=== PATIENT | female | born 1995 | race American Indian/Alaskan Native ===

== ENCOUNTER 2018-10-07 17:54 | Emergency (ER) | payer BC, OTHER ==
[2018-10-07 18:06] VITALS: BP 123/75
--- NOTE | 2018-10-07 18:06 | Emergency Department Report ---
Chief Complaint: Fall Stated Complaint: FALL INJURY/DIZZY/PAIN Time Seen by Provider: 10/07/18 18:02 - HPI History of Present Illness: pt states she felt lightheaded last night states she fell down the steps (+) n/v states she hit the back of her head states she has lower back pain no numbness, no weakness no bowel/bladder incontinence states she has an implanon in no PMHx no daily meds non smoker non drinker no drug use MSE screening note: Focused history and physical exam performed. Due to findings the following was ordered: CT head, XR of the lumbar spine, labs, UA, urine preg, EKG ED Disposition for MSE Condition: Stable
[2018-10-07 18:42] LABS: Basophils % (Auto) 0.5 % (0.0-1.8); Eosinophils % (Auto) 0.4 % (0.0-4.3); Hematocrit 32.8 % (30.3-42.9); Hemoglobin 10.5 gm/dl (10.1-14.3); Lymphocytes # (Auto) 1.8 K/mm3 (1.2-5.4); Lymphocytes % (Auto) 25.7 % (13.4-35.0); Mean Corpuscular HGB Conc 32 % (30-34); Mean Corpuscular Volume 70 fl (79-97); Monocytes # (Auto) 0.3 K/mm3 (0.0-0.8); Monocytes % (Auto) 4.5 % (0.0-7.3); Platelet Count 207 K/mm3 (140-440); Red Blood Count 4.67 M/mm3 (3.65-5.03); Red Cell Distribution Width 18.5 % (13.2-15.2)
[2018-10-07 19:01] LABS: Alanine Aminotransferase 13 units/L (7-56); Albumin 3.7 g/dL (3.9-5); BUN/Creatinine Ratio 13; Blood Urea Nitrogen 10 mg/dL (7-17); Calcium 9.4 mg/dL (8.4-10.2); Hemolysis Index 9
--- NOTE | 2018-10-07 19:40 | Cat Scan Report ---
PROCEDURE: CT HEAD/BRAIN WO CON TECHNIQUE: Spiral CT imaging of the brain is obtained without IV contrast. HISTORY: fall, hit head pain. COMPARISONS: None FINDINGS: Brain: Brain density appears normal. No evidence of intracranial hemorrhage. No parenchymal hemorr sayda, mass lesions or mass effect are seen. No abnormal extra-axial fluid collects or masses are see n. Ventricles: Ventricles are normal size and are midline. Bone Windows: No evidence of skull fracture. Paranasal sinuses: Visualized portions are clear.. Mastoid air cells: Clear. IMPRESSION: Negative unenhanced CT scan of the brain. No evidence of intracranial hemorrhage or skull fracture. This document is electronically signed by Adal Kat MD., October 07 2018 07:38:50 PM ET
== END 2018-10-07 20:40 | disposition left against medical advice (07) ==
LOC: ED 17:54
DX: R42 Dizziness and giddiness (principal); R51 Headache; Z53.21 Procedure and treatment not carried out due to patient leaving prior to being seen by health care provider
CPT/HCPCS: 36415; 70450; 80053; 85025; 93005; 93010

== ENCOUNTER 2019-06-19 14:55 | Emergency (ER) | payer BC, OTHER ==
[2019-06-19] MEDS ORDERED: SODIUM CHLORIDE 0.9% 1000 ML 1,000 ML IV ONE (15:29)
[2019-06-19] MEDS ORDERED: ONDANSETRON 4 MG/2 ML INJ IV ONE (15:29)
--- NOTE | 2019-06-19 15:30 | Emergency Department Report ---
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 PT IS AND HAS HAD N/V. SHE GOT UP AT 0200 AND WHILE GOING UP STAIRS FELL FORWARD AND HIT HER GRAVID STOMACH. SHE COMES IN WITH SUPRAPUBIC PAIN "JUST WANTING TO MAKE SURE BABY IS OK." [id number] LMP 02/26 AFTER HAVING BC IMPLANT REMOVED CONFIRMED AT [facility] END OF FEB PT BELIEVES SHE IS 16W 6 D SHE HAS HAD NO CARE SINCE THAT VISIT SHE STATES SHE HAS BEEN TRYING TO GET AN APPNT. PT DENEIS VAG BLEED OR DC SHE IS AMBULATORY AND IN NAD ON EXAM PMH NONE PSH CSEC LLE SURGERY X 2 RX VIT DENIES CIG/ETOH OR DRUGS LIVES WITH 2 OTHER CHILDREN AND "THIS BABY DADDY" -: Sudden, hour(s) (12) Radiation: suprapubic Severity: mild Consistency: intermittent Improves with: none Worsens with: none Are you Now?: Yes Associated Symptoms: loss of appetite. denies: vaginal discharge, vaginal bleeding, abdominal pain, nausea/vomiting, fever/chills, headaches, dysuria, hematuria, rash, seizure, shortness of breath, syncope, weakness - Related Data Sexually active: Yes : 4 Para: 2 A: 1 Previous Rx's Medication Instructions Recorded Last Taken Type Nitrofurantoin [place]/M-Cryst 100 mg PO Q12HR #10 capsule 06/19/19 Unknown Rx [Macrobid CAP] Ondansetron [Zofran Odt] 4 mg PO Q8HR PRN #10 tab.rapdis 06/19/19 Unknown Rx Allergies Allergy/AdvReac Type Severity Reaction Status Date / Time codeine AdvReac Intermediate Hives Verified 01/27/15 20:22 ED Review of Systems ROS: Stated complaint: ABD PAIN AFTER FALL Other details as noted in HPI Comment: All other systems reviewed and negative ED Past Medical Hx - Past Medical History Previous Medical History?: No Hx Hypertension: No Hx Diabetes: No Hx Deep Vein Thrombosis: No Hx Renal Disease: No Hx Sickle Cell Disease: No Hx Seizures: No Hx Asthma: No Hx HIV: No - Surgical History Past Surgical History?: Yes Additional Surgical History: left leg, - Family History Family history: no significant - Social History Smoking Status: Never Smoker Substance Use Type: None - Medications Home Medications: Home Medications Medication Instructions Recorded Confirmed Last Taken Type Nitrofurantoin [place]/M-Cryst 100 mg PO Q12HR #10 capsule 06/19/19 Unknown Rx [Macrobid CAP] Ondansetron [Zofran Odt] 4 mg PO Q8HR PRN #10 tab.rapdis 06/19/19 Unknown Rx ED Physical Exam - General Limitations: No Limitations General appearance: alert, in no apparent distress - Head Head exam: Present: atraumatic, normocephalic - Eye Eye exam: Present: normal appearance - ENT ENT exam: Present: mucous membranes moist - Neck Neck exam: Present: normal inspection - Respiratory Respiratory exam: Present: normal lung sounds bilaterally. Absent: respiratory distress - Cardiovascular Cardiovascular Exam: Present: regular rate, normal rhythm. Absent: systolic murmur, diastolic murmur, rubs, gallop - GI/Abdominal GI/Abdominal exam: Present: normal bowel sounds, other (GRAVID) - Rectal Rectal exam: Present: deferred - Extremities Exam Extremities exam: Present: normal inspection - Back Exam Back exam: Present: normal inspection - Neurological Exam Neurological exam: Present: alert, oriented X3 - Psychiatric Psychiatric exam: Present: normal affect, normal mood - Skin Skin exam: Present: warm, dry, intact, normal color. Absent: rash ED Course Vital Signs 06/19/19 06/19/19 15:17 17:02 Temperature 98.8 F Pulse Rate 104 H 68 Respiratory 18 16 Rate Blood Pressure 94/71 113/55 [Right] O2 Sat by Pulse 99 100 Oximetry ED Medical Decision Making - Lab Data Result diagrams: 06/19/19 15:32 06/19/19 15:32 - Radiology Data Radiology results: report reviewed, image reviewed - Medical Decision Making Labs 06/19/19 06/19/19 06/19/19 15:32 15:32 15:32 WBC 7.3 RBC 4.89 Hgb 10.6 Hct 33.4 MCV 68 L MCH 22 L MCHC 32 RDW 20.4 H Plt Count 201 Lymph % (Auto) 22.9 [place] % (Auto) 5.6 Eos % (Auto) 0.6 Baso % (Auto) 0.7 Lymph # 1.7 [place] # 0.4 Eos # 0.0 Baso # 0.1 Seg Neutrophils % 70.2 H Seg Neutrophils # 5.1 Sodium 133 L Potassium 3.9 Chloride 99.6 Carbon Dioxide 18 L Anion Gap 19 BUN 8 Creatinine 0.5 L Estimated GFR > 60 BUN/Creatinine Ratio 16 Glucose 88 Calcium 9.3 Total Bilirubin 0.20 AST 12 ALT 8 Alkaline Phosphatase 48 Total Protein 7.6 Albumin 3.5 L Albumin/Globulin Ratio 0.9 Lipase 16 HCG, Quant 247491 H Vital Signs (72 hours) 06/19/19 15:17 Temperature 98.8 F Pulse Rate 104 H Respiratory 18 Rate Blood Pressure 94/71 [Right] O2 Sat by Pulse 99 Oximetry hr 150 labs noted ua noted given suprapubic pain and leuks = culture sent and will tx on macrobid no back pain no discharge no fever or chills us noted hcg noted 1645 on reexam; denies vag bleed or discharge; taking po 1715 DISCUSSED US WITH RAD- HR 150, NO ABRUPTIO/PREVIA; ANT PLACENTA; NO EVIDENCE DISTRESS 1720 Pt updated on plan of care. She is rolling her eyes and playing on her phone during this provider interaction. She is in NAD and asking for food. dc with obgyn follow up on Saturday. Reviewed dc instructions with pt. referral given for local obgy. - Differential Diagnosis RO DISTRESS DUE TO FALL/UTI Critical care attestation.: If time is entered above; I have spent that time in minutes in the direct care of this critically ill patient, excluding procedure time. ED Disposition Clinical Impression: , Vomiting affecting , Fall, UTI (urinary tract infection) Disposition: DC-01 TO HOME OR SELFCARE Is pt being admited?: No Does the pt Need Aspirin: No Condition: Stable Instructions: (ED) Additional Instructions: PELVIC REST CALL OB AND GET RECHECKED ON SATURDAY LET THEM KNOW YOU WERE HERE TODAY DIET AND ACTIVITY TOLERATED CONTINUE HOME VITAMIN ZOFRAN FOR NAUSEA IF NEEDED STAY WELL HYDRATED MED ORDERED TODAY TYLENOL CAN BE USED FOR PAIN Prescriptions: Nitrofurantoin [place]/M-Cryst [Macrobid CAP] 100 mg PO Q12HR #10 capsule Ondansetron [Zofran Odt] 4 mg PO Q8HR PRN #10 tab.rapdis PRN Reason: Vomiting Referrals: NATHAN VILLALOBOS MD [Staff Physician] - 3-5 Days Time of Disposition: 16:18
[2019-06-19 15:44] LABS: Basophils # (Auto) 0.1 K/mm3 (0.0-0.1); Basophils % (Auto) 0.7 % (0.0-1.8); Eosinophils % (Auto) 0.6 % (0.0-4.3); Hematocrit 33.4 % (30.3-42.9); Hemoglobin 10.6 gm/dl (10.1-14.3); Lymphocytes # (Auto) 1.7 K/mm3 (1.2-5.4); Lymphocytes % (Auto) 22.9 % (13.4-35.0); Mean Corpuscular HGB Conc 32 % (30-34); Monocytes # (Auto) 0.4 K/mm3 (0.0-0.8); Monocytes % (Auto) 5.6 % (0.0-7.3); Red Blood Count 4.89 M/mm3 (3.65-5.03)
[2019-06-19 15:50] LABS: Mean Corpuscular Volume 68 fl (79-97)
[2019-06-19 15:51] LABS: Platelet Count 201 K/mm3 (140-440); Red Cell Distribution Width 20.4 % (13.2-15.2)
[2019-06-19 16:07] LABS: Alanine Aminotransferase 8 units/L (7-56); Albumin 3.5 g/dL (3.9-5); BUN/Creatinine Ratio 16; Blood Urea Nitrogen 8 mg/dL (7-17); Calcium 9.3 mg/dL (8.4-10.2); Hemolysis Index 5
[2019-06-19 16:41] LABS: Bilirubin,Urine NEG (Negative); Blood,Urine NEG (Negative); Color,Urine Yellow (Yellow); Mucus,Urine 3+ /HPF; Protein,Urine <15 mg/dL mg/dL (Negative); Urobilinogen,Urine < 2.0 mg/dL (<2.0)
[2019-06-19] MEDS ORDERED: ACETAMINOPHEN 500 MG TAB PO ONE (17:16)
--- NOTE | 2019-06-19 17:20 | Ultrasound Report ---
OB ultrasound FINDINGS: There is a viable IUP with crown-rump length measurements corresponding to an MA of 11 week s 6 days for an EDC of 01/02/2020. This correlates with the clinical dates. heart rate is 158 bp m. Left ovary appears normal. Right ovary contains a 1.5 x 0.8 x 1.6 cm cyst. There is no free fluid or subchorionic hemorrhage. No abnormality seen. Signer Name: Shyam Avila MD Signed: 06/19/2019 5:16 PM Workstation Name: [id number]
[2019-06-19] MEDS ORDERED: ONDANSETRON 4 MG ODT TAB PO ONE (17:29)
[2019-06-19 18:54] VITALS: BP 120/55
== END 2019-06-19 18:54 | disposition home or self-care (01) ==
LOC: ED 14:55
DX: O23.41 Unspecified infection of urinary tract in pregnancy, first trimester (principal); Z3A.11 11 weeks gestation of pregnancy; Z88.4 Allergy status to anesthetic agent
CPT/HCPCS: 36415; 76801; 80053; 81001; 83690; 84702; 85025; 87086; 96361; 96374; 99284; J2405; J7030; Q0162

== ENCOUNTER 2021-04-27 16:31 | Emergency (ER) | payer BC, OTHER ==
[2021-04-27 16:51] VITALS: BP 120/61
[2021-04-27] MEDS ORDERED: diphenhydrAMINE 50 MG/ML VIAL IV ONE (16:56)
[2021-04-27] MEDS ORDERED: LACTATED RINGERS 1,000 ML IV ONE (16:56)
[2021-04-27] MEDS ORDERED: METOCLOPRAMIDE 10 MG/2 ML INJ IV ONE (16:56)
--- NOTE | 2021-04-27 16:56 | Emergency Department Report ---
ED General Adult HPI - General Chief complaint: Abdominal Pain Stated complaint: -ABD/BACK PAIN Time Seen by Provider: 04/27/21 16:47 Source: patient Mode of arrival: Ambulatory Limitations: No Limitations - History of Present Illness Initial comments: 25-year-old -E[place] female patient presents to the ED with complaints of abdominal pain and mild vaginal bleeding x3 days and nausea and vomiting in x1 week. She states she is 16 weeks and currently following with [facility]. Patient states she has already had ultrasounds and her has been normal up to this point. She is A1. She denies any past medical history. No hematemesis/coffee-ground emesis, melena/hematochezia, urinary symptoms, or vaginal discharge/dyspareunia per patient. Pain is mild at this time and described as cramping - Related Data Previous Rx's Medication Instructions Recorded Last Taken Type Ondansetron [Zofran Odt] 4 mg PO Q8HR PRN #10 tab.rapdis 06/19/19 Unknown Rx Ibuprofen [Motrin 800 MG tab] 800 mg PO Q6H PRN #30 tablet 12/29/19 Unknown Rx oxyCODONE /ACETAMINOPHEN [Percocet 1 tab PO Q6H PRN #30 tablet 12/29/19 Unknown Rx 5/325 mg] Nitrofurantoin [place]/M-Cryst 100 mg PO Q12HR 5 Days #10 capsule 04/27/21 Unknown Rx [Macrobid CAP] Allergies Allergy/AdvReac Type Severity Reaction Status Date / Time codeine AdvReac Intermediate Hives Verified 04/27/21 16:38 ED Review of Systems ROS: Stated complaint: -ABD/BACK PAIN Other details as noted in HPI Constitutional: denies: chills, fever, malaise ENT: denies: throat pain Respiratory: denies: cough, shortness of breath Cardiovascular: denies: chest pain Gastrointestinal: abdominal pain, nausea, vomiting. denies: diarrhea, constipation, hematemesis, melena, hematochezia Genitourinary: denies: urgency, dysuria, frequency, hematuria, discharge, dyspareunia Neurological: denies: headache Hematological/Lymphatic: denies: swollen glands ED Past Medical Hx - Past Medical History Hx Hypertension: No Hx Heart Attack/AMI: No Hx Congestive Heart Failure: No Hx Diabetes: No Hx Deep Vein Thrombosis: No Hx Liver Disease: No Hx Renal Disease: No Hx Sickle Cell Disease: No Hx Seizures: No Hx Asthma: No Hx COPD: No Hx HIV: No - Surgical History Hx Pacemaker: No Hx Internal Defibrillator: No Additional Surgical History: left leg, - Social History Smoking Status: Never Smoker - Medications Home Medications: Home Medications Medication Instructions Recorded Confirmed Last Taken Type Ondansetron [Zofran Odt] 4 mg PO Q8HR PRN #10 tab.rapdis 06/19/19 12/30/19 Unknown Rx Ibuprofen [Motrin 800 MG tab] 800 mg PO Q6H PRN #30 tablet 12/29/19 Unknown Rx oxyCODONE /ACETAMINOPHEN [Percocet 1 tab PO Q6H PRN #30 tablet 12/29/19 Unknown Rx 5/325 mg] Nitrofurantoin [place]/M-Cryst 100 mg PO Q12HR 5 Days #10 capsule 04/27/21 Unknown Rx [Macrobid CAP] ED Physical Exam - General Limitations: No Limitations General appearance: alert, in no apparent distress - Head Head exam: Present: atraumatic, normocephalic - Eye Eye exam: Present: normal appearance - Respiratory Respiratory exam: Present: normal lung sounds bilaterally. Absent: respiratory distress - Cardiovascular Cardiovascular Exam: Present: regular rate, normal rhythm - GI/Abdominal GI/Abdominal exam: Present: soft, tenderness (mild suprapubic ) - Back Exam Back exam: Present: full ROM - Neurological Exam Neurological exam: Present: alert, oriented X3, normal gait - Psychiatric Psychiatric exam: Present: normal affect, normal mood - Skin Skin exam: Present: warm, dry, intact, normal color. Absent: rash ED Course Vital Signs 04/27/21 04/27/21 16:35 21:10 Temperature 99.5 F Pulse Rate 104 H 86 Respiratory 18 18 Rate Blood Pressure 120/61 O2 Sat by Pulse 99 100 Oximetry ED Medical Decision Making - Lab Data Result diagrams: 04/27/21 17:00 04/27/21 17:00 Lab Results 04/27/21 04/27/21 04/27/21 Range/Units 17:00 17:00 17:00 WBC 6.0 (4.5-11.0) K/mm3 RBC 4.64 (3.65-5.03) M/mm3 Hgb 10.3 (10.1-14.3) gm/dl Hct 32.9 (30.3-42.9) % MCV 71 L (79-97) fl MCH 22 L (28-32) pg MCHC 31 (30-34) % RDW 15.8 H (13.2-15.2) % Plt Count 171 (140-440) K/mm3 Lymph % (Auto) 27.5 (13.4-35.0) % [place] % (Auto) 7.0 (0.0-7.3) % Eos % (Auto) 0.7 (0.0-4.3) % Baso % (Auto) 0.1 (0.0-1.8) % Lymph # (Auto) 1.7 (1.2-5.4) K/mm3 [place] # (Auto) 0.4 (0.0-0.8) K/mm3 Eos # (Auto) 0.0 (0.0-0.4) K/mm3 Baso # (Auto) 0.0 (0.0-0.1) K/mm3 Seg Neutrophils % 64.7 (40.0-70.0) % Seg Neutrophils # 3.9 (1.8-7.7) K/mm3 Sodium 134 L (137-145) mmol/L Potassium 3.6 (3.6-5.0) mmol/L Chloride 105.5 (98-107) mmol/L Carbon Dioxide 18 L (22-30) mmol/L Anion Gap 14 mmol/L BUN 7 (7-17) mg/dL Creatinine 0.5 L (0.6-1.2) mg/dL Estimated GFR > 60 ml/min BUN/Creatinine Ratio 14 % Glucose 122 H (65-100) mg/dL Calcium 8.9 (8.4-10.2) mg/dL Total Bilirubin < 0.20 (0.1-1.2) mg/dL AST 10 (5-40) units/L ALT 7 (7-56) units/L Alkaline Phosphatase 48 (35-129) units/L Total Protein 6.9 (6.3-8.2) g/dL Albumin 3.4 L (3.9-5) g/dL Albumin/Globulin Ratio 1.0 % Lipase 18 (13-60) units/L HCG, Quant 92215 H (0-4) mIU/mL Blood Type 04/27/21 Range/Units Unknown WBC (4.5-11.0) K/mm3 RBC (3.65-5.03) M/mm3 Hgb (10.1-14.3) gm/dl Hct (30.3-42.9) % MCV (79-97) fl MCH (28-32) pg MCHC (30-34) % RDW (13.2-15.2) % Plt Count (140-440) K/mm3 Lymph % (Auto) (13.4-35.0) % [place] % (Auto) (0.0-7.3) % Eos % (Auto) (0.0-4.3) % Baso % (Auto) (0.0-1.8) % Lymph # (Auto) (1.2-5.4) K/mm3 [place] # (Auto) (0.0-0.8) K/mm3 Eos # (Auto) (0.0-0.4) K/mm3 Baso # (Auto) (0.0-0.1) K/mm3 Seg Neutrophils % (40.0-70.0) % Seg Neutrophils # (1.8-7.7) K/mm3 Sodium (137-145) mmol/L Potassium (3.6-5.0) mmol/L Chloride (98-107) mmol/L Carbon Dioxide (22-30) mmol/L Anion Gap mmol/L BUN (7-17) mg/dL Creatinine (0.6-1.2) mg/dL Estimated GFR ml/min BUN/Creatinine Ratio % Glucose (65-100) mg/dL Calcium (8.4-10.2) mg/dL Total Bilirubin (0.1-1.2) mg/dL AST (5-40) units/L ALT (7-56) units/L Alkaline Phosphatase (35-129) units/L Total Protein (6.3-8.2) g/dL Albumin (3.9-5) g/dL Albumin/Globulin Ratio % Lipase (13-60) units/L HCG, Quant (0-4) mIU/mL Blood Type A POSITIVE - Radiology Data Radiology results: report reviewed ULTRASOUND OBSTETRIC INDICATION: Pelvic pain and bleeding. Estimated clinical age of 17 weeks, 6 days. TECHNIQUE: Transabdominal. COMPARISON: None available. FINDINGS: There is a single intrauterine . Biparietal Diameter = 3.4 cm = 16 weeks, 4 day(s). Head Circumference = 12.9 cm = 16 weeks, 4 day(s). Abdominal Circumference = 10.7 cm = 16 weeks, 4 day(s). Femur Length = 2.2 cm = 16 weeks, 4 day(s). Average Ultrasound Age (AUA) = 16 weeks, 4 day(s). Heart Rate: 145 beats per minute. Estimated Weight in grams (if calculated): 162 Estimated Weight Growth Percentile (if calculated): 2 Position: cephalic. Cervix: closed. Length in cm (if measured): 3.6 Placenta: Fundal, grade 0 and free of the os. Amniotic Fluid Volume: normal Amniotic Fluid Index (MARISA) in cm (if calculated): Not measured. Maternal Adnexa: No significant abnormality. IMPRESSION: 1. Single, living intrauterine with estimated sonographic age of 16 weeks, 4 day(s). 2. No significant sonographic abnormality. - Medical Decision Making 25-year-old -[place] female patient presents to the ED with complaints of abdominal pain and mild vaginal bleeding x3 days and nausea and vomiting in x1 week. She states she is 16 weeks and currently following with [facility]. Patient states she has already had ultrasounds and her has been normal up to this point. She is A1. She denies any past medical history. No hematemesis/coffee-ground emesis, melena/hematochezia, urinary symptoms, or vaginal discharge/dyspareunia per patient. Pain is mild at this time and described as cramping. Patient reports she is taking Zofran at home without relief of her symptoms. Ultrasound shows 16-week 4-day IUP without any acute abnormalities. No significant abnormalities noted on CBC or CMP. Patient tolerating juice p.o. Mild pyuria noted on UA-given patient's pain level treat with Macrobid. Recommend follow-up with [facility] within 3 to 5 days. Discussed in detail signs and symptoms that should prompt immediate return to ED, patient verbalized understanding. Her pain is controlled at this time and she is well-appearing. Patient is stable for discharge home Critical care attestation.: If time is entered above; I have spent that time in minutes in the direct care of this critically ill patient, excluding procedure time. ED Disposition Clinical Impression: Vomiting , Vaginal bleeding during , Abdominal pain during Disposition: 01 HOME / SELF CARE / HOMELESS Is pt being admited?: No Condition: Stable Instructions: Abdominal Pain During , [id number], and Urinary Tract Infection, Activity Restriction During , Vaginal Bleeding During , Second Trimester, [id number], Abdominal Pain (ED) Additional Instructions: Please follow-up with your [facility] within 3 to 5 days Prescriptions: Nitrofurantoin [place]/M-Cryst [Macrobid CAP] 100 mg PO Q12HR 5 Days #10 capsule Referrals: PRIMARY CARE, [Primary Care Provider] - 3-5 Days Forms: Accompanied Note
[2021-04-27 17:24] LABS: Basophils % (Auto) 0.1 % (0.0-1.8); Eosinophils % (Auto) 0.7 % (0.0-4.3); Hematocrit 32.9 % (30.3-42.9); Hemoglobin 10.3 gm/dl (10.1-14.3); Lymphocytes # (Auto) 1.7 K/mm3 (1.2-5.4); Lymphocytes % (Auto) 27.5 % (13.4-35.0); Mean Corpuscular HGB Conc 31 % (30-34); Mean Corpuscular Volume 71 fl (79-97); Monocytes # (Auto) 0.4 K/mm3 (0.0-0.8); Platelet Count 171 K/mm3 (140-440); Red Blood Count 4.64 M/mm3 (3.65-5.03); Red Cell Distribution Width 15.8 % (13.2-15.2)
[2021-04-27 17:42] LABS: Alanine Aminotransferase 7 units/L (7-56); Albumin 3.4 g/dL (3.9-5); Blood Urea Nitrogen 7 mg/dL (7-17); Calcium 8.9 mg/dL (8.4-10.2); Hemolysis Index 2
[2021-04-27 17:57] LABS: BUN/Creatinine Ratio 14
--- NOTE | 2021-04-27 18:18 | Ultrasound Report ---
ULTRASOUND OBSTETRIC INDICATION: Pelvic pain and bleeding. Estimated clinical age of 17 weeks, 6 days. TECHNIQUE: Transabdominal. COMPARISON: None available. FINDINGS: There is a single intrauterine . Biparietal Diameter = 3.4 cm = 16 weeks, 4 day(s). Head Circumference = 12.9 cm = 16 weeks, 4 day(s). Abdominal Circumference = 10.7 cm = 16 weeks, 4 day(s). Femur Length = 2.2 cm = 16 weeks, 4 day(s). Average Ultrasound Age (AUA) = 16 weeks, 4 day(s). Heart Rate: 145 beats per minute. Estimated Weight in grams (if calculated): 162 Estimated Weight Growth Percentile (if calculated): 2 Position: cephalic. Cervix: closed. Length in cm (if measured): 3.6 Placenta: Fundal, grade 0 and free of the os. Amniotic Fluid Volume: normal Amniotic Fluid Index (MARISA) in cm (if calculated): Not measured. Maternal Adnexa: No significant abnormality. IMPRESSION: 1. Single, living intrauterine with estimated sonographic age of 16 weeks, 4 day(s). 2. No significant sonographic abnormality. Signer Name: Soren Dumas MD Signed: 04/27/2021 6:14 PM Workstation Name: [id number]
[2021-04-27] MEDS ORDERED: ACETAMINOPHEN 500 MG TAB PO STA (19:42)
[2021-04-27 20:26] LABS: Bilirubin,Urine NEG (Negative); Blood,Urine NEG (Negative); Color,Urine Yellow (Yellow); Mucus,Urine 1+ /HPF; Protein,Urine <15 mg/dL mg/dL (Negative); Urobilinogen,Urine < 2.0 mg/dL (<2.0)
== END 2021-04-27 21:10 | disposition home or self-care (01) ==
LOC: ED 16:31
DX: O21.9 Vomiting of pregnancy, unspecified (principal); O20.9 Hemorrhage in early pregnancy, unspecified; O26.892 Other specified pregnancy related conditions, second trimester; R10.30 Lower abdominal pain, unspecified; Z3A.16 16 weeks gestation of pregnancy; Z88.5 Allergy status to narcotic agent; Z79.899 Other long term (current) drug therapy; Z98.890 Other specified postprocedural states
CPT/HCPCS: 36415; 76805; 80053; 81001; 83690; 84702; 85025; 86900; 86901; 96361; 96374; 96375; 99284; J1200; J2765; J7120; J3490

== ENCOUNTER 2021-08-29 20:24 | Outpatient (CLI) | payer BC, OTHER ==
[2021-08-29] MEDS ORDERED: LACTATED RINGERS 500 ML IV ONE (22:01)
[2021-08-29 22:40] LABS: Mucus,Urine 3+ /HPF
[2021-08-29 22:50] LABS: Color,Urine Yellow (Yellow)
[2021-08-29 22:51] LABS: Bilirubin,Urine NEG (Negative); Blood,Urine NEG (Negative)
[2021-08-29 22:52] LABS: PH,Urine 7.5 (5.0-7.0); Protein,Urine <30 mg dL mg/dL (Negative)
[2021-08-29 22:53] LABS: Urobilinogen,Urine < 2.0 mg/dL (<2.0)
[2021-08-30 01:59] VITALS: BP 148/63
== END 2021-08-30 02:26 | disposition home or self-care (01) ==
LOC: TRG 20:24 → APU 20:26 → TRG 08-30 02:26
PROVIDERS: ATTEND Obstetrics & Gynecology Gynecology
DX: O26.893 Other specified pregnancy related conditions, third trimester (principal); R10.9 Unspecified abdominal pain; Z3A.34 34 weeks gestation of pregnancy
CPT/HCPCS: 81001; 87086